=== PATIENT | female | born 1955 | race Hispanic/Latino ===

== ENCOUNTER 2019-10-31 12:36 | Inpatient (IN) | payer OTHER ==
[~2019-10-31] VITALS: Ht 167.6 cm; Wt 76.7 kg
[2019-10-31] MEDS ORDERED: LISINOPRIL10 MG PO ×2 (13:04)
--- NOTE | 2019-11-04 21:38 | EKG ---
[facility] [address] [facility] [place], [place] [address] Signed Normal sinus rhythm Inferior infarct , age undetermined T wave abnormality, consider anterior ischemia Abnormal ECG No previous ECGs available Confirmed by MODESTO HENDERSON MD ([id number]) on 11/04/2019 9:37:56 PM Electronically Signed By: MODESTO HENDERSON MD 11/04/19 2138 PATIENT NAME: CRISTÓBAL PAYNE Electrocardiogram DATE OF : 59 PHYSICIAN: MODESTO HENDERSON MD REPORT #: [id number] REPORT IS CONFIDENTIAL AND NOT TO BE RELEASED WITHOUT AUTHORIZATION
--- NOTE | 2019-11-04 21:38 | EKG ---
[facility] [address] [facility] [place], [place] [address] Signed Normal sinus rhythm Inferior infarct (cited on or before 04-NOV-2019) T wave abnormality, consider anterior ischemia Abnormal ECG When compared with ECG of 04-NOV-2019 15:46, (Unconfirmed) No significant change was found Confirmed by MODESTO HENDERSON MD ([id number]) on 11/04/2019 9:38:10 PM Electronically Signed By: MODESTO HENDERSON MD 11/04/19 2138 PATIENT NAME: CRISTÓBAL PAYNE Electrocardiogram DATE OF : 59 PHYSICIAN: MODESTO HENDERSON MD REPORT #: [id number] REPORT IS CONFIDENTIAL AND NOT TO BE RELEASED WITHOUT AUTHORIZATION
[2019-11-08] MEDS ORDERED: LISINOPRIL5 MG PO ×2 (12:24)
== END 2019-11-08 15:00 | disposition home or self-care (01) | DRG 177 ==
LOC: ED 12:36 → CCU 19:40 → MS 11-07 17:42
PROVIDERS: ADMIT Student in an Organized Health Care Education/Training Program
PROC: 8E0ZXY6 Isolation (ICD-10-PCS; principal; 2019-10-31)
DX: U07.1 COVID-19 (principal); J12.89 Other viral pneumonia; J96.01 Acute respiratory failure with hypoxia; R74.0 Nonspecific elevation of levels of transaminase and lactic acid dehydrogenase [LDH]; E87.6 Hypokalemia; I10 Essential (primary) hypertension; R73.03 Prediabetes; R51 Headache; Z79.899 Other long term (current) drug therapy; Z87.891 Personal history of nicotine dependence
CPT/HCPCS: 71045; 80048; 80053; 82728; 83615; 83735; 83880; 84100; 85025; 85379; 85610; 86140; 86141; 86317; 87040; 87449; 87502; 93005; 93010; 96374; 99285-25; J0696; J0780; J1650; J2405

== ENCOUNTER 2019-11-18 14:46 | Emergency (ER) | payer OTHER ==
[~2019-11-18] VITALS: Ht 167.6 cm; Wt 76.7 kg
[~2019-11-18 14:46] MED LIST: LISINOPRIL10 MG PO; LISINOPRIL5 MG PO
--- OUTSIDE RECORDS SUMMARY | 2019-11-18 14:50 | XMS ---
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 Jacey has no Care Guidelines for this patient. Amy VISIT COUNT (12 MO.) [address] TOTAL 4 NOTE: Visits indicate total known visits. ED/UCC VISIT TRACKING (12 MO.) [facility] COMPLAINT: - L SIDE CHEST PRESSURE 10/31/2019 12:38 [facility] TYPE: Emergency COMPLAINT: - COUGH, SOB, FEVER 10/25/2019 19:11 [facility] OR TYPE: Emergency DIAGNOSES: - Pneumonia, unspecified organism - SOB 10/22/2019 09:27 [facility] OR TYPE: Emergency DIAGNOSES: - Pneumonia, unspecified organism - NAUSEA,VOMITING,FEVER,BACK PAIN INPATIENT VISIT TRACKING (12 MO.) 10/31/2019 19:[address] [facility] TYPE: Medical Surgical COMPLAINT: - ACUTE HYPOXIC RESPIRATORY FAILURE DIAGNOSES: - Nonspecific elevation of levels of transaminase and lactic ac - COVID-19 - Prediabetes - Personal history of nicotine dependence - Acute respiratory failure with hypoxia - Other viral pneumonia - Other long-term (current) drug therapy - Hypokalemia - Essential (primary) hypertension - Pneumonia, unspecified organism - Headache [email or web address]
--- NOTE | 2019-11-19 11:30 | EKG ---
[facility] [address] [facility] [place], [place] [address] Signed Normal sinus rhythm Normal ECG When compared with ECG of 04-NOV-2019 15:47, No significant change was found Confirmed by MODESTO HENDERSON MD ([id number]) on 11/19/2019 11:29:49 AM Electronically Signed By: MODESTO HENDERSON MD 11/19/19 1130 PATIENT NAME: CRISTÓBAL PAYNE Electrocardiogram DATE OF : 59 PHYSICIAN: MODESTO HENDERSON MD REPORT #: [id number] REPORT IS CONFIDENTIAL AND NOT TO BE RELEASED WITHOUT AUTHORIZATION
== END 2019-11-18 17:08 | disposition home or self-care (01) ==
LOC: ED 14:46
DX: R07.89 Other chest pain (principal); I10 Essential (primary) hypertension; Z87.891 Personal history of nicotine dependence
CPT/HCPCS: 71045; 80053; 84484; 85025; 93005; 93010; 99285-25

== ENCOUNTER 2019-11-26 14:01 | Emergency (ER) | payer OTHER ==
[~2019-11-26] VITALS: Ht 167.6 cm; Wt 76.7 kg
--- OUTSIDE RECORDS SUMMARY | 2019-11-26 14:04 | XMS ---
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 [place]eronica VISIT COUNT (12 MO.) [address] TOTAL 5 NOTE: Visits indicate total known visits. ED/UCC VISIT TRACKING (12 MO.) 2019 14:02 [facility] TYPE: Emergency COMPLAINT: - CHEST PAIN 11/18/2019 14:47 [facility] TYPE: Emergency COMPLAINT: - L SIDE CHEST PRESSURE DIAGNOSES: - Essential (primary) hypertension - Personal history of nicotine dependence - Other chest pain 10/31/2019 12:38 [facility] TYPE: Emergency COMPLAINT: - COUGH, SOB, FEVER 10/25/2019 19:11 [facility] OR TYPE: Emergency DIAGNOSES: - Pneumonia, unspecified organism - SOB 10/22/2019 09:27 [facility] OR TYPE: Emergency DIAGNOSES: - Pneumonia, unspecified organism - NAUSEA,VOMITING,FEVER,BACK PAIN INPATIENT VISIT TRACKING (12 MO.) 10/31/2019 19:40 [facility] TYPE: Medical Surgical COMPLAINT: - ACUTE HYPOXIC RESPIRATORY FAILURE DIAGNOSES: - COVID-19 - Personal history of nicotine dependence - Nonspecific elevation of levels of transaminase and lactic ac - Headache - Headache - Pneumonia, unspecified organism - Essential (primary) hypertension - Other custodial (current) drug therapy - Hypokalemia - Hypokalemia - Other buttermaker continuous churn (current) drug therapy - Nonspecific elevation of levels of transaminase and lactic ac - Other viral pneumonia - Prediabetes - Other viral pneumonia - Acute respiratory failure with hypoxia - Personal history of nicotine dependence - Prediabetes - Essential (primary) hypertension - COVID-19 - Acute respiratory failure with hypoxia [email or web address]
== END 2019-11-26 16:47 | disposition home or self-care (01) ==
LOC: ED 14:01
DX: J40 Bronchitis, not specified as acute or chronic (principal); I10 Essential (primary) hypertension; Z87.891 Personal history of nicotine dependence; Z79.899 Other long term (current) drug therapy
CPT/HCPCS: 71045; 99284-25